=== PATIENT | female | born 1985 | race Asian ===

== ENCOUNTER 2022-06-29 07:06 | Emergency (ER) | payer OTHER ==
[2022-06-29 15:05] LABS: POTASSIUM 3.5 mmol/L (3.6-5.2)
[2022-06-29 15:58] LABS: PLATELET COUNT 291 K/uL (152-353)
== END 2022-06-29 10:40 | disposition home or self-care (01) ==
LOC: ED 07:06
PROVIDERS: Emergency Medicine
DX: N23 Unspecified renal colic (principal)
CPT/HCPCS: 80048; 80307; 81000; 85027; 96374; 96375; 99284

== ENCOUNTER 2022-10-12 15:53 | Emergency (ER) | payer OTHER ==
[~2022-10-12] VITALS: Ht 175.3 cm; Wt 102.1 kg
[2022-10-12 16:02] VITALS: BP 171/106; TEMP 98.9
== END 2022-10-12 16:25 | disposition home or self-care (01) ==
LOC: ED 15:53
DX: K08.89 Other specified disorders of teeth and supporting structures (principal)
CPT/HCPCS: 99282

== ENCOUNTER 2022-12-25 09:36 | Emergency (ER) | payer OTHER ==
[~2022-12-25] VITALS: Ht 175.3 cm; Wt 98.9 kg
[2022-12-25 10:46] VITALS: BP 166/90; TEMP 98.3
== END 2022-12-25 10:46 | disposition home or self-care (01) ==
LOC: ED 09:36
DX: K04.7 Periapical abscess without sinus (principal); K08.89 Other specified disorders of teeth and supporting structures
CPT/HCPCS: 96372; 99282; J0696